=== PATIENT | male | born 1985 | race Caucasian/White ===

== ENCOUNTER 2019-09-06 19:02 | Emergency (ER) | payer OTHER ==
[~2019-09-06] VITALS: Ht 165.1 cm; Wt 136.4 kg
[2019-09-06 19:06] VITALS: BP 126/67; PULSE 104; TEMP 97.8
== END 2019-09-06 20:01 | disposition home or self-care (01) ==
LOC: COL.ER 19:02
DX: S96.912A Strain of unspecified muscle and tendon at ankle and foot level, left foot, initial encounter (principal); W19.XXXA Unspecified fall, initial encounter; X50.1XXA Overexertion from prolonged static or awkward postures, initial encounter; Y92.410 Unspecified street and highway as the place of occurrence of the external cause

== ENCOUNTER 2020-04-02 13:38 | Emergency (ER) | payer OTHER ==
[~2020-04-02] VITALS: Ht 165.1 cm; Wt 136.4 kg
[2020-04-02 13:49] VITALS: TEMP 98
[2020-04-02] MEDS ORDERED: FLEXERIL 1010 MG/TAB PO ×2 (13:53→15:24)
[2020-04-02] MEDS ORDERED: NORCO 325 MG-51 TAB PO (13:53)
[2020-04-02] MEDS ORDERED: NAPROSYN500 MG PO (15:24)
[2020-04-02 15:46] VITALS: BP 139/83; PULSE 92
== END 2020-04-02 15:46 | disposition home or self-care (01) ==
LOC: COL.ER 13:38
DX: U07.1 COVID-19 (principal); S16.1XXA Strain of muscle, fascia and tendon at neck level, initial encounter; M62.830 Muscle spasm of back; Z88.1 Allergy status to other antibiotic agents; Z88.2 Allergy status to sulfonamides; Z79.1 Long term (current) use of non-steroidal anti-inflammatories (NSAID); V49.50XA Passenger injured in collision with unspecified motor vehicles in traffic accident, initial encounter
CPT/HCPCS: J1885

== ENCOUNTER 2021-01-28 08:59 | Outpatient (RCR) | payer OTHER ==
[~2021-01-28 08:59] MED LIST: FLEXERIL 1010 MG/TAB PO; NAPROSYN500 MG PO; NORCO 325 MG-51 TAB PO
== END 2021-04-10 | disposition home or self-care (01) ==
LOC: WSOH
DX: E78.00 Pure hypercholesterolemia, unspecified (principal); R07.9 Chest pain, unspecified; Z98.890 Other specified postprocedural states; Y99.0 Civilian activity done for income or pay